=== PATIENT | male | born 2000 | race African-American/Black ===

== ENCOUNTER → 2025-02-17 | Outpatient (CLI) | payer OTHER | LOC: M CARPUL 13:55 | DX: R06.09 Other forms of dyspnea (principal) ==

== ENCOUNTER → 2025-02-27 | Outpatient (CLI) | payer OTHER | LOC: M EKG 07:58 | DX: R06.09 Other forms of dyspnea (principal) ==

== ENCOUNTER → 2025-03-18 | Outpatient (CLI) | payer OTHER | LOC: M CARPUL 13:03 | DX: R06.00 Dyspnea, unspecified (principal) ==

== ENCOUNTER 2025-04-29 02:35 | Emergency (ER) | payer OTHER ==
[~2025-04-29] VITALS: Ht 172.7 cm; Wt 76.0 kg
[2025-04-29 02:37] VITALS: TEMP 96.5
[2025-04-29] MEDS ORDERED: CETI10CH PO (02:41)
[2025-04-29] MEDS ORDERED: MUCI120T PO (02:41)
[2025-04-29] MEDS ORDERED: ALBU8.5H (02:43)
[2025-04-29] MEDS ORDERED: FLUTISP (02:43)
[2025-04-29 05:00] VITALS: BP 108/75
[2025-04-29 05:15] VITALS: O2SAT 98
[2025-04-29] MEDS: ALBUTEROL 90 MCG/ACT 8 GM HFA INHALER INH ONE (05:22)
== END 2025-04-29 05:25 | disposition home or self-care (01) ==
LOC: M ED 02:35
DX: J98.01 Acute bronchospasm (principal); Z79.51 Long term (current) use of inhaled steroids